=== PATIENT | female | born 2005 | race African-American/Black ===

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

== ENCOUNTER 2025-03-08 20:57 | Emergency (ER) | payer OTHER ==
[2025-03-08] MEDS ORDERED: Acetaminophen 325 MG TAB ONE (21:34)
== END 2025-03-08 21:44 | disposition home or self-care (01) ==
LOC: CSHERS 20:57
DX: J02.9 Acute pharyngitis, unspecified (principal); R09.82 Postnasal drip
CPT/HCPCS: 99283

== ENCOUNTER 2025-06-07 20:22 | Emergency (ER) | payer OTHER ==
[~2025-06-07 20:22] MED LIST: Iopamidol 300 61% 100 ML VIAL FS ONE
[2025-06-07 21:05] LABS: Glucose, Urine (Dipstick) Normal (Negative); Leukocyte Negative (Negative); Protein, Urine (Dipstick) Negative (Neg-Trace); Specific Gravity, Urine 1.005 (1.005-1.030)
[2025-06-07 21:19] LABS: CAUTI Indications for Culture Pelvic or flank pain; RBC/HPF 0-3 HPF (0-3); WBC/HPF 0-3 HPF (0-3)
[2025-06-07 21:20] LABS: Bacteria/HPF 1+ HPF (None Seen); Mucous/LPF Rare LPF (<2+)
[2025-06-07 21:22] LABS: Pregnancy Test - Urine (BHCG) Negative (Negative); Pregu Control Background? CLEAR/WHITE (CLR/WHITE); Pregu Control Bar Appear? YES (CONTROL BAR); Urine Culture Reflex No No
[2025-06-07 21:29] LABS: #Basophils Less than 0.03 10x3/uL (0.0-0.2); #Eosinophils 0.31 10x3/uL (0.0-0.5); #Monocytes 0.42 10x3/uL (0.0-1.1); #Neutrophils 2.08 10x3/uL (1.5-8.4); %Basophils 0.2 % (0.0-2.0); %Eosinophils 6.3 % (0.0-6.0); %Lymphocytes 42.2 % (18.0-47.0); %Monocytes 8.6 % (0.0-10.0); %Neutrophils 42.5 % (40.0-75.0); Hematocrit 36.8 % (34.9-44.5); Hemoglobin 12.3 g/dL (12.0-15.5); Mean Corpuscular Hemoglobin 30.8 pg (27.0-33.0); Mean Corpuscular Volume 92.2 fL (81.6-98.3); Platelet Count 285 10x3/uL (150-450); Red Blood Cell (RBC) Count 3.99 10x6/uL (3.90-5.03); White Blood Cell (WBC) Count 4.90 10x3/uL (3.5-10.5)
[2025-06-07 21:46] LABS: ALT (SGPT) 16 U/L (Less than 34); AST (SGOT) 21 U/L (11-34); Albumin 4.1 g/dL (3.1-4.5); Alkaline Phosphatase 55 U/L (40-110); Anion Gap 10 mmol/L (10-20); BUN (Urea Nitrogen) 17 mg/dL (7.0-18.7); Bilirubin, Total 0.5 mg/dL (0.3-1.2); Calc. Creatinine Clearance 0 mL/min (70-130); Calcium 8.7 mg/dL (7.8-10.44); Carbon Dioxide 25 mmol/L (22-29); Chloride 106 mmol/L (98-107); Globulin 3.1 g/dL (2.4-3.5); Glucose 92 mg/dL (70-105); Lipase 37 U/L (8-78); Potassium 3.8 mmol/L (3.5-5.1); Sodium 137 mmol/L (136-145)
[2025-06-07 21:49] LABS: BHCG - Serum Negative (NEGATIVE); Pregs Control Background? CLEAR/WHITE (CLR/WHITE); Pregs Control Bar Appear? YES (CONTROL BAR)
== END 2025-06-07 22:40 | disposition home or self-care (01) ==
LOC: CSHERS 20:22
DX: N83.201 Unspecified ovarian cyst, right side (principal); N39.0 Urinary tract infection, site not specified; F17.290 Nicotine dependence, other tobacco product, uncomplicated
CPT/HCPCS: 36415; 74177; 80053; 81001; 81025; 83690; 84703; 85025

== ENCOUNTER 2025-07-11 | Emergency (ER) | payer OTHER ==
[2025-07-11] MEDS ORDERED: Dexamethasone 10 MG/ML VIAL ONE (00:35)
== END 2025-07-11 00:42 | disposition home or self-care (01) ==
LOC: CSHERS
DX: B34.9 Viral infection, unspecified (principal); Z20.822 Contact with and (suspected) exposure to COVID-19; F17.290 Nicotine dependence, other tobacco product, uncomplicated
CPT/HCPCS: 87428; 99283; J1100

== ENCOUNTER 2025-09-09 00:01 | Emergency (ER) | payer OTHER ==
[2025-09-09 00:57] LABS: #Basophils 0.05 10x3/uL (0.0-0.2); #Eosinophils 0.34 10x3/uL (0.0-0.5); #Monocytes 0.66 10x3/uL (0.0-1.1); #Neutrophils 2.96 10x3/uL (1.5-8.4); %Basophils 0.7 % (0.0-2.0); %Eosinophils 4.6 % (0.0-6.0); %Lymphocytes 45.0 % (18.0-47.0); %Monocytes 8.9 % (0.0-10.0); %Neutrophils 39.7 % (40.0-75.0); Hematocrit 37.7 % (34.9-44.5); Hemoglobin 13.2 g/dL (12.0-15.5); Mean Corpuscular Hemoglobin 31.7 pg (27.0-33.0); Mean Corpuscular Volume 90.6 fL (81.6-98.3); Platelet Count 332 10x3/uL (150-450); Red Blood Cell (RBC) Count 4.16 10x6/uL (3.90-5.03); White Blood Cell (WBC) Count 7.44 10x3/uL (3.5-10.5)
[2025-09-09 01:08] LABS: ALT (SGPT) 25 U/L (Less than 34); AST (SGOT) 41 U/L (11-34); Albumin 4.3 g/dL (3.1-4.5); Alkaline Phosphatase 51 U/L (40-110); Anion Gap 21 mmol/L (10-20); BUN (Urea Nitrogen) 16 mg/dL (7.0-18.7); Bilirubin, Total 0.4 mg/dL (0.3-1.2); Calc. Creatinine Clearance 0 mL/min (70-130); Calcium 9.0 mg/dL (7.8-10.44); Carbon Dioxide 12 mmol/L (22-29); Chloride 106 mmol/L (98-107); Globulin 3.3 g/dL (2.4-3.5); Glucose 93 mg/dL (70-105); Potassium 3.3 mmol/L (3.5-5.1); Sodium 136 mmol/L (136-145)
[2025-09-09] MEDS ORDERED: Bacitracin 1 PK ONE (02:32)
== END 2025-09-09 02:54 | disposition home or self-care (01) ==
LOC: CSHERS 00:01
DX: S20.222A Contusion of left back wall of thorax, initial encounter (principal); S00.81XA Abrasion of other part of head, initial encounter; F17.290 Nicotine dependence, other tobacco product, uncomplicated; V49.9XXA Car occupant (driver) (passenger) injured in unspecified traffic accident, initial encounter
CPT/HCPCS: 70450; 71260; 72125; 74177; 80053; 85025; 90471; 90715; 96374; 96376; J3010